=== PATIENT | male | born 1960 | race Caucasian/White ===

== ENCOUNTER 2023-11-07 11:32 | Emergency (ER) | payer SELFPAY ==
[~2023-11-07] VITALS: Ht 185.4 cm; Wt 99.8 kg
[~2023-11-07 11:32] MED LIST: ATARAX,VISTARIL10 MG PO; GLUCOPHAGE1000 MG PO; JANUVIA100 MG PO; LOSARTAN POTASS25 M1 PO; NEXIUM20 M1 PO; PRAVASTATIN SOD20 MG PO; VITAMIN D31000 UNI1 PO
== END 2023-11-07 13:59 | disposition home or self-care (01) ==
LOC: ED 11:32
DX: S61.012A Laceration without foreign body of left thumb without damage to nail, initial encounter (principal); E11.9 Type 2 diabetes mellitus without complications; Z88.6 Allergy status to analgesic agent; Z88.8 Allergy status to other drugs, medicaments and biological substances; Z98.890 Other specified postprocedural states; W26.0XXA Contact with knife, initial encounter; Y93.89 Activity, other specified; Y92.89 Other specified places as the place of occurrence of the external cause; Y99.8 Other external cause status

== ENCOUNTER 2023-11-25 14:42 | Emergency (ER) | payer SELFPAY ==
[~2023-11-25] VITALS: Ht 185.4 cm; Wt 99.8 kg
== END 2023-11-25 15:36 | disposition home or self-care (01) ==
LOC: ED 14:42
DX: S61.012D Laceration without foreign body of left thumb without damage to nail, subsequent encounter (principal); E11.9 Type 2 diabetes mellitus without complications; Z88.6 Allergy status to analgesic agent; Z88.8 Allergy status to other drugs, medicaments and biological substances; Z98.890 Other specified postprocedural states; X58.XXXD Exposure to other specified factors, subsequent encounter